=== PATIENT | male | born 1965 | race Caucasian/White ===

== ENCOUNTER 2020-09-19 17:29 | Inpatient (IN) | payer OTHER ==
[~2020-09-19] VITALS: Ht 177.8 cm; Wt 58.6 kg
[2020-09-19 19:09] VITALS: BP 158/83
[2020-09-19] MEDS ORDERED: ACETAMINOPHEN TAB 650MG DOSE (2X325MG) PO PRN (19:30)
[2020-09-19] MEDS ORDERED: MAALOX 30 ML SUSP *UDC PO PRN (19:30)
[2020-09-19] MEDS ORDERED: MORPHINE 4 MG/ML 1ML VIAL/SYRINGE (J2270) IV PRN (19:30)
[2020-09-19] MEDS ORDERED: MOM 30ML SUSPENSION UDC PO PRN (19:30)
[2020-09-19] MEDS ORDERED: LORazepam 2 MG TAB PO PRN (19:35)
[2020-09-19] MEDS ORDERED: NICOTINE 21MG/24HR 1 EA TRANSDERMAL TD PRN (20:10)
[2020-09-19] MEDS ORDERED: TAMSULOSIN 0.4 MG CAP PO ONE (20:20)
[2020-09-19 20:33] LABS: BASO % 0.3 % (0.0-1.0); HEMATOCRIT 39.7 % (42.0-52.0); HEMOGLOBIN 13.7 g/dl (13.5-17.5); LYMPH # 0.8 10^3/uL (1.5-5.0); LYMPH % 4.9 % (24.0-44.0); MEAN CORPUSCULAR HEMOGLOBIN 32.5 pg (27.0-33.0); MEAN CORPUSCULAR HGB CONC 34.5 g/dl (32.0-36.5); MEAN CORPUSCULAR VOLUME 94.3 fl (80.0-96.0); MONO # 0.9 10^3/uL (0.0-0.8); MONO % 5.4 % (2.0-8.0); NEUTROPHILS # 14.1 10^3/uL (1.5-8.5); NEUTROPHILS % 88.7 % (36.0-66.0); PLATELET COUNT, AUTOMATED 246 10^3/uL (150-450); RED BLOOD COUNT 4.21 10^6/uL (4.30-6.10); WHITE BLOOD COUNT 15.9 10^3/uL (4.0-10.0)
[2020-09-19] MEDS: DOCUSATE SODIUM 100MG CAPSULE PO SCH (20:43)
[2020-09-19] MEDS: THIAMINE 100 MG TAB PO SCH (20:44)
[2020-09-19] MEDS: NS 1,000 ML IV SCH (20:44)
[2020-09-19] MEDS ORDERED: ONDANSETRON 4MG/2ML VIAL IV SCH (21:00)
[2020-09-19 21:05] LABS: ALBUMIN 3.8 GM/DL (3.2-5.2); BILIRUBIN,TOTAL 0.9 MG/DL (0.2-1.0); CALCIUM LEVEL 8.6 MG/DL (8.5-10.1); CREATININE FOR GFR 1.34 MG/DL (0.70-1.30); GLOMERULAR FILTRATION RATE 59.4 (>56); MAGNESIUM LEVEL 1.7 MG/DL (1.8-2.4); POTASSIUM SERUM 4.1 MEQ/L (3.5-5.1); TOTAL PROTEIN 6.8 GM/DL (6.4-8.2)
--- NOTE | 2020-09-19 21:25 | HPEPDOC ---
[facility] Medical History & Physical Date of Admission Sep 19, 2020 Date of Service: Sep 19, 2020 Attending Physician: LANDY OLIVARES MD History and Physical CHIEF COMPLAINT: [55 y/o male c/o left flank pain x1 day] HISTORY OF PRESENT ILLNESS: [This is a 55 y/o male with a pmh of alcohol abuse who is transferred to us from [facility] with a complaint of left flank pain that began early today. Workup in [facility] was significant for a ct scan showing 1.8mm stone at left bladder junction with ureter. Left sided hydro. Left sided perinephric stranding and fluid concerning for forniceal rupture. Patient transferred to us for urologic consultation and potential surgical intervention. As of my exam of patient, he is stating that he feels acutely ill with left sided abdominal pain, fever, and nausea. Patient states that he has not vomited, but feels as though he may. Patient states that he has never had kidney stones before. Patient at this time denies chest pain, sob, diarrhea, constipation, dysuria, rash, lower extremity edema.] PAST MEDICAL HISTORY: 1. [See HPI PAST SURGICAL HISTORY: 1. [Cholecystectomy ]. SOCIAL HISTORY: Tobacco use:[Current daily smoker] ETOH: [Drinks approx one quart of hard liquor weekly] Illicit drug use: [Denies] FAMILY HISTORY: Reviewed - none pertinent ALLERGIES: Please see below. REVIEW OF SYSTEMS: CONSTITUTIONAL: [See HPI]. HEENT: [Denies uri sx]. CARDIOVASCULAR: [Chest chest pain, palpitations]. RESPIRATORY: [Denies sob, cough]. GASTROINTESTINAL: [See HPI]. GENITOURINARY: [See HPI]. SKIN: [Denies rash]. MUSCULOSKELETAL: [Complains of left sided back pain]. NEUROLOGICAL: [Denies syncope, paresthesias]. ENDOCRINE: [Denies hx of DM]. HEMATOLOGIC/LYMPHATIC: [Denies easy bruising]. HOME MEDICATIONS: Please see below. PHYSICAL EXAMINATION: VITAL SIGNS: Please see below. GENERAL APPEARANCE: [This is an uncomfortable appearing 55 y/o male. He does not appear to be in any respiratory distress.]. HEENT: [No mass or lesion. EOMI. No scleral icterus. Nares patent. Oral mucosa moist. Poor dentition.]. CARDIOVASCULAR: [Regular rate, rhythm. No murmurs, rubs, gallos]. LUNGS: [Good air flow b/l. No wheezing, rales, rhonchi]. ABDOMEN: [Soft, extremely tender throughout, worst in the LUQ.]. MUSCULOSKELETAL: [No joint deformity]. EXTREMITIES: [No peripheral edema. No overlying skin changes. Pulses intact.]. NEUROLOGICAL: [Speech clear. Patient moves all fours freely. A+Ox3. No focal deficits.]. PSYCHIATRIC: [Mood and affect appear appropriate.]. LABORATORY DATA: See below. MICROBIOLOGY: Please see below. ASSESSMENT: [This is a 55 y/o male with a pmh of alcohol abuse who is transferred to us from [facility] with a complaint of left flank pain that began early today. Workup in [facility] was significant for a ct scan showing 1.8mm stone at left bladder junction with ureter. Left sided hydro. Left sided perinephric stranding and fluid concerning for forniceal rupture. Patient transferred to us for urologic consultation and potential surgical intervention.]. . PLAN: 1. [Left sided urolithiasis with pyelonephritis - Urological consult placed, hospital team grateful for the assistance. - Patient's kidney function is stable. Patient does not meet sepsis criteria upon arrival to our facility. - Blood cultures obtained, may not be dependable d/t dose of IV rocephin at outside facility - continue IV rocephin - IVF overnight - toradol, morphine for pain - zofran for nausea - will start flomax - ua ordered - strain urine while inpatient - NPO after midnight for possible or tomorrow for stenting 2. Alcohol abuse - CIWA 3. Nicotine dependence - patch ordered DVT prophylaxis - Mechanical d/t likely surgery]. Vital Signs Vital Signs Date Time Temp Pulse Resp B/P (MAP) Pulse Ox O2 Delivery O2 Flow Rate FiO2 09/19/20 20:40 22 98 Room Air 09/19/20 19:09 98.2 56 158/83 (108) Laboratory Data Labs 24H Laboratory Tests 2 09/19/20 20:15: Immature Granulocyte % (Auto) 0.7, Neutrophils (%) (Auto) 88.7H, Lymphocytes (%) (Auto) 4.9L, Monocytes (%) (Auto) 5.4, Eosinophils (%) (Auto) 0.0, Basophils (%) (Auto) 0.3, Neutrophils # (Auto) 14.1H, Lymphocytes # (Auto) 0.8L, Monocytes # (Auto) 0.9H, Eosinophils # (Auto) 0.0, Basophils # (Auto) 0.0, Nucleated Red Blood Cells % (auto) 0.0, Anion Gap 11, Glomerular Filtration Rate 59.4, Calcium Level 8.6, Magnesium Level 1.7L, Total Bilirubin 0.9, Aspartate Amino Transf (AST/SGOT) 25, Alanine Aminotransferase (ALT/SGPT) 25, Alkaline Phosphatase 57, Total Protein 6.8, Albumin 3.8, Albumin/Globulin Ratio 1.3 CBC/BMP Laboratory Tests 09/19/20 20:15 Microbiology Microbiology 09/19/20 Blood Culture, Received Pending 09/19/20 Blood Culture, Received Pending Home Medications No Active Prescriptions or Reported Meds Allergies Coded Allergies: No Known Allergies (Unverified , 09/19/20) A-FIB/CHADSVASC A-FIB History Current/History of A-Fib/PAF?: No HAN CRAIG Sep 19, 2020 21:25
[2020-09-19 22:00] VITALS: BP 151/87
[2020-09-19] MEDS ORDERED: CALCIUM CARBONATE 500 MG CHEW U/D PO ONE (22:10)
[2020-09-19] MEDS ORDERED: KETOROLAC 30 MG/ML 1ML VIAL IV PRN (22:10)
[2020-09-19] MEDS: MORPHINE 4 MG/ML 1ML VIAL/SYRINGE (J2270) IV PRN (22:17)
--- NOTE | 2020-09-20 01:23 | REPVR ---
PROCEDURE INFORMATION: Exam: US Retroperitoneal Limited, Kidneys Exam date and time: 09/19/2020 11:58 PM Age: 55 years old Clinical indication: Abdominal pain; Flank; Left; Additional info: Assess for hydronephrosis TECHNIQUE: Imaging protocol: Real-time ultrasound of the retroperitoneum with image documentation. Examination was focused on the kidneys. COMPARISON: No relevant prior studies available. FINDINGS: Right kidney: Unremarkable 11.7 cm right kidney. Left kidney: 12.3 cm left kidney with mild hydronephrosis and a 1.9 cm simple/benign cyst. Bladder: Bladder incompletely distended. IMPRESSION: 12.3 cm left kidney with mild hydronephrosis and a 1.9 cm simple/benign cyst. Electronically signed by: Kaiden Pedraza On 09/20/2020 01:22:29 AM
[2020-09-20] MEDS: MORPHINE 4 MG/ML 1ML VIAL/SYRINGE (J2270) IV PRN ×2 (02:50→06:55)
[2020-09-20] MEDS: ONDANSETRON 4MG/2ML VIAL IV SCH ×3 (02:50→09:04)
[2020-09-20 06:00] VITALS: BP 113/57
[2020-09-20] MEDS: NS 1,000 ML IV SCH (06:54)
[2020-09-20 08:05] LABS: BASO % 0.3 % (0.0-1.0); EOS # 0.1 10^3/uL (0.0-0.5); EOS % 0.7 % (0.0-3.0); HEMATOCRIT 37.4 % (42.0-52.0); HEMOGLOBIN 12.9 g/dl (13.5-17.5); LYMPH # 2.2 10^3/uL (1.5-5.0); LYMPH % 18.8 % (24.0-44.0); MEAN CORPUSCULAR HGB CONC 34.5 g/dl (32.0-36.5); MEAN CORPUSCULAR VOLUME 95.7 fl (80.0-96.0); MONO % 8.8 % (2.0-8.0); NEUTROPHILS # 8.4 10^3/uL (1.5-8.5); NEUTROPHILS % 71.1 % (36.0-66.0); PLATELET COUNT, AUTOMATED 230 10^3/uL (150-450); RED BLOOD COUNT 3.91 10^6/uL (4.30-6.10); WHITE BLOOD COUNT 11.8 10^3/uL (4.0-10.0)
--- NOTE | 2020-09-20 08:12 | IPNPDOC ---
Date Seen The patient was seen on 09/20/20. Progress Note pt seen and examined this morning doesn't look to be in significant pain avss from what I was told by outside er doc, stone at left uvj and small if surgery (stent placement) done today, won't be till after 5pm hesitant to do surgery for such a small stone that will likely pass suggest npo, fluids, pain medication and reevaluate later today thank you [phone] VS, I&O, 24H, Isaak Vital Signs/I&O Vital Signs Date Time Temp Pulse Resp B/P (MAP) Pulse Ox O2 Delivery O2 Flow Rate FiO2 09/20/20 07:05 18 Room Air 09/20/20 06:00 98.2 67 113/57 (75) 96 I&O- Last 24 Hours up to 6 AM 09/20/20 05:59 Intake Total 250 ml Output Total 800 ml Balance -550 ml Laboratory Data 24H LABS Laboratory Tests 2 09/19/20 20:15: Immature Granulocyte % (Auto) 0.7, Neutrophils (%) (Auto) 88.7H, Lymphocytes (%) (Auto) 4.9L, Monocytes (%) (Auto) 5.4, Eosinophils (%) (Auto) 0.0, Basophils (%) (Auto) 0.3, Neutrophils # (Auto) 14.1H, Lymphocytes # (Auto) 0.8L, Monocytes # (Auto) 0.9H, Eosinophils # (Auto) 0.0, Basophils # (Auto) 0.0, Nucleated Red Blood Cells % (auto) 0.0, Anion Gap 11, Glomerular Filtration Rate 59.4, Calcium Level 8.6, Magnesium Level 1.7L, Total Bilirubin 0.9, Aspartate Amino Transf (AST/SGOT) 25, Alanine Aminotransferase (ALT/SGPT) 25, Alkaline Phosphatase 57, Total Protein 6.8, Albumin 3.8, Albumin/Globulin Ratio 1.3 09/19/20 23:46: Urine Color YELLOW, Urine Appearance CLEAR, Urine pH 5.0, Urine Specific [place] 1.042, Urine Protein NEGATIVE, Urine Glucose (UA) 1+H, Urine Ketones 1+H, Urine Blood 1+H, Urine Nitrite NEGATIVE, Urine Bilirubin NEGATIVE, Urine Urobilinogen 0.2, Urine Leukocyte Esterase NEGATIVE, Urine WBC (Auto) 1, Urine RBC (Auto) 4H, Urine Hyaline Casts (Auto) 0, Urine Bacteria (Auto) NEGATIVE, Urine Squamous Epithelial Cells 0, Urine Mucus (Auto) SMALL, Urine Sperm (Auto) 09/20/20 07:49: Immature Granulocyte % (Auto) 0.3, Neutrophils (%) (Auto) 71.1H, Lymphocytes (%) (Auto) 18.8L, Monocytes (%) (Auto) 8.8H, Eosinophils (%) (Auto) 0.7, Basophils (%) (Auto) 0.3, Neutrophils # (Auto) 8.4, Lymphocytes # (Auto) 2.2, Monocytes # (Auto) 1.0H, Eosinophils # (Auto) 0.1, Basophils # (Auto) 0.0, Nucleated Red Blood Cells % (auto) 0.0 CBC/BMP Laboratory Tests 09/19/20 20:15 09/20/20 07:49 Microbiology Microbiology 09/19/20 Blood Culture, Received Pending 09/19/20 Blood Culture, Received Pending MARION GUARDADO MD Sep 20, 2020 08:12
[2020-09-20] MEDS ORDERED: MULTIVITAMINS/MINERALS THERAP 1 TAB PO SCH (09:00)
[2020-09-20] MEDS ORDERED: FOLIC ACID 1 MG TAB PO SCH (09:00)
[2020-09-20] MEDS: DOCUSATE SODIUM 100MG CAPSULE PO SCH (09:00)
[2020-09-20] MEDS ORDERED: cefTRIAXone SOD 1 GM in D5W MINI-BAG PLUS 50 ML IV SCH (09:00)
[2020-09-20] MEDS: THIAMINE 100 MG TAB PO SCH (09:00)
[2020-09-20] MEDS ORDERED: TAMSULOSIN 0.4 MG CAP PO SCH (09:00)
[2020-09-20 09:37] LABS: BLOOD UREA NITROGEN 10 MG/DL (7-18); CALCIUM LEVEL 7.9 MG/DL (8.5-10.1); CARBON DIOXIDE LEVEL 24 MEQ/L (21-32); CHLORIDE LEVEL 109 MEQ/L (98-107); CREATININE FOR GFR 1.01 MG/DL (0.70-1.30); GLOMERULAR FILTRATION RATE > 60.0 (>56); GLUCOSE, FASTING 90 MG/DL (70-100); MAGNESIUM LEVEL 1.8 MG/DL (1.8-2.4); SODIUM LEVEL 141 MEQ/L (136-145)
[2020-09-20] MEDS ORDERED: LEVO500T3 PO (11:34)
[2020-09-20] MEDS ORDERED: FLOM0.4C39 PO (11:34)
--- NOTE | 2020-09-20 14:34 | DS.PDOC ---
Discharge Summary General Date of Admission Sep 19, 2020 at 19:27 Date of Discharge 09/20/2020 Discharge Summary PROCEDURES PERFORMED DURING STAY: [None]. ADMITTING DIAGNOSES / DISCHARGE DIAGNOSES: Left sided hydronephrosis - likely 2/2 ureteral stone, possibly component of pyelonephritis s/p JOSE - likely 2/2 pre-renal etiology Normocytic anemia s/p Hypomagnesemia Alcohol abuse Nicotine dependence DVT prophylaxis COMPLICATIONS/CHIEF COMPLAINT: L flank pain HISTORY OF PRESENT ILLNESS: Patient is a 55-year-old male with a PMHx of Alcohol abuse , who is transferred from [facility] with complaints of left flank pain that began on 09/[address] scan had revealed a 1.8 mm stone in the left ureterovesicular junction with left-sided hydronephrosis, left-sided perinephric stranding and fluid present concerning for forniceal rupture. Patient was transferred to [facility] for urologic consultation and possible surgical intervention. Patient was seen and examined at the bedside reported that he was feeling better with pain medications that he had received. Patient was evaluated by urology who wanted to continue with conservative therapy and defer any surgical procedures. Patient is adamant that he is leaving today and has left AGAINST MEDICAL ADVICE. Patient was advised that leaving carries a risk of worsening of his medical condition, disability and/or . Patient has signed AMA paperwork. HOSPITAL COURSE: Left sided hydronephrosis - likely 2/2 ureteral stone, possibly component of pyelonephritis - Patient has reported left-sided flank pain has improved since arrival - Afebrile and hemodynamically stable - Physical does not reveal any significant left-sided tenderness - Leukocytosis has been improving - Urology on consultation; appreciate their input - Currently on Ceftriaxone; will transition to Levofloxacin on discharge - c/w Tamsulosin - Patient will be leaving AGAINST MEDICAL ADVICE; risks and benefits discussed. Patient has signed paperwork - Will have outpatient follow-up with primary care provider, and urology within the next 7 days s/p JOSE - likely 2/2 pre-renal etiology - Cr has improved from admission Alcohol abuse - No evidence of withdrawal - c/w CIIL protocol Nicotine dependence - Advised smoking cessation - c/w Nicotine patch DVT prophylaxis - c/w TEDs / Sequentials DISCHARGE MEDICATIONS: Please see below. ALLERGIES: Please see below. PHYSICAL EXAMINATION ON DISCHARGE: Vitals (See below) General: Lying in bed, appears comfortable, AAOx3 HEENT: NC, AT CVS: RRR, +S1S2 Lungs: Fair air entry b/l, no evidence of wheezing, rales or rhonchi Abdomen: Soft, ND, NT Extremities: - Edema, - Calf tenderness LABORATORY DATA: Please see below. IMAGING: Renal US 09/19: 12.3 cm left kidney with mild hydronephrosis and a 1.9 cm simple/benign cyst. ACTIVITY: [As tolerated]. DISCHARGE PLAN: Follow-up with primary care provider, and urology within the next 5 days Remain compliant with treatment plan and medications Return to the ER if you experience any problems DISPOSITION: Against Medical Advice. DISCHARGE CONDITION: [Stable]. TIME SPENT ON DISCHARGE: 35 minutes Vital Signs/I&Os Vital Signs Date Time Temp Pulse Resp B/P (MAP) Pulse Ox O2 Delivery O2 Flow Rate FiO2 09/20/20 07:05 18 Room Air 09/20/20 06:00 98.2 67 113/57 (75) 96 I&O- Last 24 Hours up to 6 AM 09/20/20 06:00 Intake Total 1000 ml Output Total 1075 ml Balance -75 ml Laboratory Data Labs 24H Laboratory Tests 2 09/19/20 20:15: Immature Granulocyte % (Auto) 0.7, Neutrophils (%) (Auto) 88.7H, Lymphocytes (%) (Auto) 4.9L, Monocytes (%) (Auto) 5.4, Eosinophils (%) (Auto) 0.0, Basophils (%) (Auto) 0.3, Neutrophils # (Auto) 14.1H, Lymphocytes # (Auto) 0.8L, Monocytes # (Auto) 0.9H, Eosinophils # (Auto) 0.0, Basophils # (Auto) 0.0, Nucleated Red Blood Cells % (auto) 0.0, Anion Gap 11, Glomerular Filtration Rate 59.4, Calcium Level 8.6, Magnesium Level 1.7L, Total Bilirubin 0.9, Aspartate Amino Transf (AST/SGOT) 25, Alanine Aminotransferase (ALT/SGPT) 25, Alkaline Phosphatase 57, Total Protein 6.8, Albumin 3.8, Albumin/Globulin Ratio 1.3 09/19/20 23:46: Urine Color YELLOW, Urine Appearance CLEAR, Urine pH 5.0, Urine Specific [place] 1.042, Urine Protein NEGATIVE, Urine Glucose (UA) 1+H, Urine Ketones 1+H, Urine Blood 1+H, Urine Nitrite NEGATIVE, Urine Bilirubin NEGATIVE, Urine Urobilinogen 0.2, Urine Leukocyte Esterase NEGATIVE, Urine WBC (Auto) 1, Urine RBC (Auto) 4H, Urine Hyaline Casts (Auto) 0, Urine Bacteria (Auto) NEGATIVE, Urine Squamous Epithelial Cells 0, Urine Mucus (Auto) SMALL, Urine Sperm (Auto) 09/20/20 07:49: Immature Granulocyte % (Auto) 0.3, Neutrophils (%) (Auto) 71.1H, Lymphocytes (%) (Auto) 18.8L, Monocytes (%) (Auto) 8.8H, Eosinophils (%) (Auto) 0.7, Basophils (%) (Auto) 0.3, Neutrophils # (Auto) 8.4, Lymphocytes # (Auto) 2.2, Monocytes # (Auto) 1.0H, Eosinophils # (Auto) 0.1, Basophils # (Auto) 0.0, Nucleated Red Blood Cells % (auto) 0.0, Anion Gap 8, Glomerular Filtration Rate > 60.0, Calcium Level 7.9L, Magnesium Level 1.8 CBC/BMP Laboratory Tests 09/19/20 20:15 09/20/20 07:49 Microbiology Microbiology 09/19/20 Blood Culture, Received Pending 09/19/20 Blood Culture, Received Pending Discharge Medications Scheduled Levofloxacin (Levofloxacin) 500 Mg Tablet, 1 TAB PO DAILY Tamsulosin HCl (Flomax) 0.4 Mg Capsule, 1 CAP PO DAILY Allergies Coded Allergies: No Known Allergies (Unverified , 09/19/20) MITESH JOHNSON MD Sep 20, 2020 14:34
== END 2020-09-20 11:11 | disposition left against medical advice (07) | DRG 463 ==
LOC: M MSPAV 19:27
PROVIDERS: ADMIT Family Medicine; ATTEND Internal Medicine
DX: N13.6 Pyonephrosis (principal); E83.42 Hypomagnesemia; F10.10 Alcohol abuse, uncomplicated; F17.200 Nicotine dependence, unspecified, uncomplicated; D64.9 Anemia, unspecified